=== PATIENT | male | born 1990 | race Caucasian/White ===

== ENCOUNTER 2018-11-27 04:39 | Inpatient (IN) | payer OTHER ==
[~2018-11-27] VITALS: Ht 167.6 cm; Wt 62.7 kg
[2018-11-27] MEDS ORDERED: SOD CHLORIDE 0.9% 1,000 ML IV STA (05:52)
--- NOTE | 2018-11-27 06:16 | ERD ---
ER Documentation Chief Complaint Chief Complaint aloc, friend states been drinking etoh HPI This is a 28-year-old male with a past medical history significant for polysubstance abuse including significant daily alcohol abuse and recent heroin abuse who is now presenting for altered mentation and concern of intoxication. The patient's friend brought him to the emergency department because he was more altered than usual. The patient feels fatigued, lightheaded and generally weak. He is sleepy but arousable. He is oriented x3. He does endorse a mild headache with nausea and general abdominal discomfort. He has not vomited. He denies any constipation or diarrhea. He has not had any black or bloody or tarry stools. The patient does not endorse any suicidal or homicidal ideations. He does not endorse any auditory or visual hallucinations. The patient denies fever or chills. The patient has had no headache or vision changes. The patient does not endorse neck or back pain. The patient denies dizziness. The patient has had no chest pain or trouble breathing. The patient has had no focal deficits. The patient has had no weakness or numbness or tingling to the face or extremities. ROS All systems reviewed and are negative except as per history of present illness. Allergies Allergies: Coded Allergies: No Known Drug Allergies (Verified Allergy, Unknown, 11/27/18) PMhx/Soc Medical and Surgical Hx: pt denies Surgical Hx History of Surgery: No Anesthesia Reaction: No Hx Neurological Disorder: No Hx Respiratory Disorders: No Hx Cardiac Disorders: No Hx Psychiatric Problems: No Hx Miscellaneous Medical Probl: Yes (alcoholism, drug abuse) Hx Alcohol Use: Yes Hx Substance Use: Yes Hx Tobacco Use: Yes Smoking Status: Current every day smoker FmHx Family History: No diabetes Physical Exam Vitals Vital Signs Date Temp Pulse Resp B/P (MAP) Pulse Ox O2 O2 Flow FiO2 Time Delivery Rate 11/27/18 93 18 124/86 97 Nasal 05:09 (99) Cannula 11/27/18 97.7 106 18 123/68 94 04:47 (86) Physical Exam Const: No apparent distress, well-developed, well-nourished Head: Normocephalic, Atraumatic Eyes: Normal Conjunctiva. Extraocular movements intact. Pupils equal, round and reactive to light ENT: Normal External Ears, Nose and Mouth. Neck: Full range of motion. No meningismus. Resp: Clear to auscultation bilaterally, No wheezes, rales or rhonchi Cardio: Regular rate and rhythm. No murmurs, rubs or gallops Abd: Soft, non tender, non distended. Normal bowel sounds Skin: No petechiae or rashes Back: No midline tenderness. No CVA tenderness Ext: No cyanosis, or edema Neur: Sleepy but arousable, oriented 3. Cranial nerves intact. No facial droop. Normal strength, sensation and coordination. Result Diagram: 11/27/1852211/27/18522 Results 24 hrs Laboratory Tests Test 11/27/18 05:23 11/27/18 05:24 White Blood Count 30.1 10^3/ul Red Blood Count 5.22 10^6/ul Hemoglobin 16.1 g/dl Hematocrit 47.7 % Mean Corpuscular Volume 91.4 fl Mean Corpuscular Hemoglobin 30.8 pg Mean Corpuscular Hemoglobin Concent 33.8 g/dl Red Cell Distribution Width 12.8 % Platelet Count 314 10^3/UL Mean Platelet Volume 9.8 fl Immature Granulocytes % 1.400 % Neutrophils % % Lymphocytes % % Monocytes % % Eosinophils % % Basophils % % Nucleated Red Blood Cells % 0.0 /100WBC Immature Granulocytes # 0.410 10^3/ul Neutrophils # 10^3/ul Lymphocytes # 10^3/ul Monocytes # 10^3/ul Eosinophils # 10^3/ul Basophils # 10^3/ul Nucleated Red Blood Cells # 10^3/ul Sodium Level 148 mmol/L Potassium Level 4.6 mmol/L Chloride Level 107 mmol/L Carbon Dioxide Level 23 mmol/L Anion Gap 18 Blood Urea Nitrogen 23 mg/dl Creatinine 1.74 mg/dl Est Glomerular Filtrat Rate mL/min 47 mL/min Glucose Level 67 mg/dl Calcium Level 8.5 mg/dl Total Bilirubin 0.2 mg/dl Direct Bilirubin 0.00 mg/dl Indirect Bilirubin 0.2 mg/dl Aspartate Amino Transf (AST/SGOT) 1331 IU/L Alanine Aminotransferase (ALT/SGPT) 1257 IU/L Alkaline Phosphatase 103 IU/L Total Protein 8.0 g/dl Albumin 5.0 g/dl Globulin 3.00 g/dl Albumin/Globulin Ratio 1.66 Salicylates Level < 1.0 mg/dl Acetaminophen Level < 10.0 ug/ml Ethyl Alcohol Level 111.0 mg/dl Urine Color YELLOW Urine Clarity CLOUDY Urine pH 5.0 Urine Specific [place] 1.015 Urine Ketones 1+ mg/dL Urine Nitrite NEGATIVE mg/dL Urine Bilirubin NEGATIVE mg/dL Urine Urobilinogen NEGATIVE mg/dL Urine Leukocyte Esterase NEGATIVE Riya/ul Urine Microscopic RBC 2 /HPF Urine Microscopic WBC 6 /HPF Urine Bacteria FEW /HPF Urine Mucus FEW /HPF Urine Hemoglobin 3+ mg/dL Urine Glucose NEGATIVE mg/dL Urine Total Protein 2+ mg/dl Urine Opiates Screen POSITIVE Urine Barbiturates NEGATIVE Urine Amphetamines Screen POSITIVE Urine Benzodiazepines Screen NEGATIVE Urine Cocaine Screen NEGATIVE Urine Cannabinoids NEGATIVE Current Medications Medications Dose Sig/Paco Start Time Status Last (Trade) Ordered Route PRN Stop Time Admin Dose Reason Admin Sodium 1,000 ml @ Q1H STAT 11/27/18 DC 11/27/18 Chloride 1,000 mls/hr IV 05:52 11/27/18 06:14 06:51 Procedures/MDM MDM The patient's presentation warrants further investigation. Previous medical records, if available, were reviewed. LABS The patient's laboratory testing was obtained and reviewed. No emergent treatment was required unless described below. CBC: Significant leukocytosis, potentially still reactive. No E/o anemia or thrombocytopenia Chemistry: No E/o severe acidosis or alkalosis or diabetic ketoacidosis. Elevated creatinine, concerning for acute kidney injury. significant transaminitis, concerning for viral hepatitis. Tox: E/o alcohol abuse, methamphetamine abuse, opiate abuse. No E/o salicylate or acetaminophen use. Urine: Unlikely a urinary tract infection. 3+ hemoglobin with very few RBCs, concerning for the possibility of rhabdo CK: Pending TREATMENT/DISPOSITION The patient presents for intoxication. The patient does not have symptoms concerning for acute psychosis. Patient is not suicidal or homicidal. I do not believe that he is in immediate danger to himself or others. I do not feel the patient requires further psychiatric workup. The patient does have laboratory abnormalities that require further evaluation. The patient does have a significant leukocytosis, which I suspect is potentially reactive as I do not see evidence of a systemic infection. I do not feel the patient requires antibiotics at this time. The patient has evidence of acute kidney injury. I am concerned about the possibility of rhabdomyolysis. The patient was given IV fluids in the emergency department. The patient's CK is currently pending. The patient also has evidence of significant transaminitis, concerning for viral hepatitis. An acute hepatitis panel was ordered and sent off. ADMISSION At this time, I feel that the patient requires admission for further evaluation and management. The patient will be admitted to panel in accordance with the patient's insurance. The patient was accepted by Dr. Samuels at 7:30 AM on November 27, 2018. Departure Diagnosis: Primary Impression: Polysubstance abuse Additional Impressions: Transient alteration of awareness Alcohol abuse Opiate abuse, continuous Methamphetamine abuse Leukocytosis Leukocytosis type: unspecified Qualified Codes: D72.829 - Elevated white blood cell count, unspecified Acute kidney injury Viral hepatitis Viral hepatitis type: unspecified Viral hepatitis chronicity: unspecified Hepatic coma status: without hepatic coma Qualified Codes: B19.9 - Unspecified viral hepatitis without hepatic coma Hematuria Hematuria type: unspecified type Qualified Codes: R31.9 - Hematuria, unspecified Condition: Serious ZURDO SAVAGE MD Nov 27, 2018 06:16
[2018-11-27] MEDS ORDERED: ACETAMINOPHEN 325 MG TAB PO PRN (07:30)
[2018-11-27] MEDS ORDERED: ONDANSETRON 4 MG INJ IV PRN ×2 (07:30→09:30)
[2018-11-27 09:30] VITALS: BP 135/78; PULSE 94; RESP 17
[2018-11-27] MEDS ORDERED: NACL 0.9% 3 ML SYG IV SCH (09:30)
--- NOTE | 2018-11-27 09:34 | HP ---
Date/Time of Note Date/Time of Note DATE: 11/27/18 TIME: 09:34 Assessment/Plan VTE Prophylaxis Pharmacological prophylaxis: NA/contraindicated Pharm contraindication: liver dx, renal impairment Lines/Catheters IV C[facility] Type [facility]from [facility]): [facility] Assessment/Plan Hospital Course 28-year-old male with past medical history of alcoholism who was brought in by his parents because of altered level of consciousness, who was found to have underlying acute kidney injury and rhabdomyolysis with evidence of alcohol intoxication, who will be admitted to inpatient setting for further treatment and evaluation. 1. Alcohol intoxication. -Continue the patient on a tapering dose of Librium. -Continue the patient on PRN IV benzodiazepines for any DTs. -Start daily vitamin supplements. -Obtain geriatric social worker consult. 2. Substance abuse. -Urine drug screen positive for opioids and amphetamines. -Cessation advised. -Social work consult. 3. Acute kidney injury. -Most probably intra-renal in origin from underlying rhabdomyolysis. -Continue IV hydration. -Avoid nephrotoxic medications. 4. Rhabdomyolysis. -Continue IV hydration. 5. Transaminitis with hyperbilirubinemia. -Avoid hepatotoxic medications -Most probably secondary to underlying alcoholism. -Trend LFTs. -Hepatitis panel negative. 6. Leukocytosis. -Etiology unclear. -Patient remains afebrile. -Probably reactive. -Monitor. Plan: The patient will be admitted to inpatient medical surgical floor. The patient will be started on a regular diet. The patient will be started on DVT prophylaxis. The patient will remain a full code. Activities will be as tolerated. The rest of the patient's management will be based on the clinical course and the results of diagnostic studies. Based on the patient's clinical presentation, he most probably requires a 1 midnight's stay for further management and evaluation of his clinical presentation. The patient was seen in collaboration with Dr. Samuels. Result Diagram: 11/27/18 0511/27/18522 Results 24hrs Laboratory Tests Test 11/27/18 05:23 11/27/18 05:24 11/27/18 08:45 White Blood Count 30.1 H Red Blood Count 5.22 Hemoglobin 16.1 Hematocrit 47.7 Mean Corpuscular Volume 91.4 Mean Corpuscular Hemoglobin 30.8 Mean Corpuscular Hemoglobin Concent 33.8 Red Cell Distribution Width 12.8 Platelet Count 314 Mean Platelet Volume 9.8 Immature Granulocytes % 1.400 H Neutrophils % Lymphocytes % Monocytes % Eosinophils % Basophils % Nucleated Red Blood Cells % 0.0 Immature Granulocytes # 0.410 H Neutrophils # Lymphocytes # Monocytes # Eosinophils # Basophils # Nucleated Red Blood Cells # Sodium Level 148 H Potassium Level 4.6 Chloride Level 107 Carbon Dioxide Level 23 Anion Gap 18 H Blood Urea Nitrogen 23 H Creatinine 1.74 H Est Glomerular Filtrat Rate mL/min 47 L Glucose Level 67 L Calcium Level 8.5 Total Bilirubin 0.2 Direct Bilirubin 0.00 Indirect Bilirubin 0.2 Aspartate Amino Transf (AST/SGOT) 1331 H Alanine Aminotransferase (ALT/SGPT) 1257 H Alkaline Phosphatase 103 Creatine Kinase 2993 H Total Protein 8.0 Albumin 5.0 H Globulin 3.00 Albumin/Globulin Ratio 1.66 Salicylates Level < 1.0 L Acetaminophen Level < 10.0 L Ethyl Alcohol Level 111.0 H Urine Color YELLOW Urine Clarity CLOUDY A Urine pH 5.0 Urine Specific [place] 1.015 Urine Ketones 1+ H Urine Nitrite NEGATIVE Urine Bilirubin NEGATIVE Urine Urobilinogen NEGATIVE Urine Leukocyte Esterase NEGATIVE Urine Microscopic RBC 2 Urine Microscopic WBC 6 H Urine Bacteria FEW A Urine Mucus FEW A Urine Hemoglobin 3+ H Urine Glucose NEGATIVE Urine Total Protein 2+ H Urine Opiates Screen POSITIVE Urine Barbiturates NEGATIVE Urine Amphetamines Screen POSITIVE Urine Benzodiazepines Screen NEGATIVE Urine Cocaine Screen NEGATIVE Urine Cannabinoids NEGATIVE Hepatitis B Surface Antigen Pending Hepatitis B Core Total Antibody Pending Hepatitis C Antibody Pending HPI/ROS Admit Date/Time Admit Date/Time Nov 27, 2018 at 07:41 Hx of Present Illness This is a 28 year old male who denied any past medical history, other than history of alcohol abuse. The patient was recently at a alcohol rehab program and was discharged from there. The patient went on a drinking spree with his friends. The patient was brought to emergency room by his friends because of altered level of consciousness. ER physician documented recent heroin abuse. However, the patient denied using any recreational drugs. Nevertheless, the patient's urine drug screen was positive for opioids and amphetamines. The patient was complaining of anxiety. The patient denied any pain. He denied any nausea, vomiting, constipation, diarrhea, or black stools. The patient does not remember how he got to the emergency room. In the emergency room, the patient was somnolent although arousable. The patient reported a mild headache with nausea and some general abdominal discomfort in the emergency room. The patient's workup showed that he has underlying transaminitis without hyperbilirubinemia. He was also noticed to be in acute renal failure with a BUN and creatinine of 23 and 1.74 respectively. The patient was treated with IV fluids in the emergency room. The patient's alcohol level was 111. ROS Constitutional: no complaints Eyes: no complaints ENT: no complaints Respiratory: no complaints Cardiovascular: no complaints Gastrointestinal: no complaints Genitourinary: no complaints Musculoskeletal: no complaints Skin: no complaints Neurologic: no complaints Endocrine: no complaints Lymphatic: no complaints Psychological: anxiety Immunologic: no complaints PMH/Family/Social Past Medical History 1. Alcohol abuse. 2. Nicotine use. Medical History: no pertinent history Medications Current Medications Ondansetron HCl (Zofran Inj) 4 mg BRIDGE ORDER PRN IV NAUSEA/VOMITING; Start 11/27/18 at 07:30; Stop 11/28/18 at 07:29 Acetaminophen (Tylenol Tab) 650 mg ER BRIDGE PRN PO .MILD PAIN 1-3 OR TEMP; Start 11/27/18 at 07:30; Stop 11/28/18 at 07:29 Sodium Chloride 1,000 ml @ 100 mls/hr Q10H IV ; Start 11/27/18 at 09:29; Status UNV IV Flush (NS 3 ml) 3 ml PER PROTOCOL IV ; Start 11/27/18 at 09:30; Status UNV Ondansetron HCl (Zofran Inj) 4 mg Q6H PRN IV NAUSEA/VOMITING; Start 11/27/18 at 09:30; Status UNV Lorazepam (Ativan) 1 mg Q2H PRN IV Anxiety; Start 11/27/18 at 09:30; Status UNV Chlordiazepoxide (Librium) 25 mg TID PO ; Start 11/27/18 at 13:00; Status UNV Thiamine HCl (Vitamin B1) 100 mg DAILY PO ; Start 11/27/18 at 09:30; Status UNV Multivitamins Therapeutic (Theragran) 1 tab DAILY PO ; Start 11/27/18 at 09:30; Status UNV Coded Allergies: No Known Drug Allergies (Verified Allergy, Unknown, 11/27/18) Past Surgical History Past Surgical Hx: no surgical history Social History 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 Alcohol Use: heavy Smoking Status: Current every day smoker Drug Use: other (Patient denies, but urine positive for amphteamines and opiods.) Exam/Review of Systems Vital Signs Vitals Vital Signs Date Temp Pulse Resp B/P (MAP) Pulse Ox O2 O2 Flow FiO2 Time Delivery Rate 11/27/18 98.3 90 20 134/92 98 Room Air 07:30 (106) Exam Exam General: Adequately build 28 year-old male lying in bed in no apparent distress. HEENT: Normocephalic, atraumatic. Eyes: Anicteric sclerae, conjunctivae clear. ENT: Nasal septum midline, oral mucosa moist. Neck supple, no JVD noticed. Respiratory: Bilaterally clear breath sounds. No use of accessory muscles of respiration. No adventitious breath sounds. Cardiovascular: S1, S2 heard. Regular rate and rhythm. Abdomen: Soft, nontender, and nondistended. Bowel sounds positive in all 4 quadrants. Genitourinary: Deferred. Extremities: No cyanosis, no clubbing, no edema. Peripheral pulses palpable. Neurologic: The patient is awake and alert. Oriented to place and person. Unsure of the day or month. Knows the current year and the president. Skin: Normal skin turgor. No skin rashes. PEIRRE MULLIGAN NP Nov 27, 2018 09:34
[2018-11-27] MEDS: THIAMINE 100 MG TAB PO SCH (10:37)
[2018-11-27] MEDS: SOD CHLORIDE 0.9% 1,000 ML IV SCH ×2 (10:37→22:10)
[2018-11-27] MEDS: MULTIVITAMINS THERAPEUTIC TAB PO SCH (10:38)
[2018-11-27] MEDS: LORAZEPAM 2 MG INJ IV PRN ×4 (10:39→20:53)
[2018-11-27 11:00] VITALS: Ht 167.6 cm; Wt 62.7 kg
[2018-11-27 11:06] VITALS: BP 135/78; PULSE 84; RESP 17
[2018-11-27] MEDS: CHLORDIAZEPOXIDE 25 MG CAP PO SCH ×2 (13:35→20:53)
[2018-11-27 14:00] VITALS: BP 137/76; PULSE 100; RESP 18
[2018-11-27 20:30] VITALS: BP 122/68; PULSE 90; RESP 18
[2018-11-28] MEDS: LORAZEPAM 2 MG INJ IV PRN ×3 (01:22→17:38)
[2018-11-28 02:25] VITALS: BP 110/67; PULSE 90; RESP 18
[2018-11-28] MEDS: SOD CHLORIDE 0.9% 1,000 ML IV SCH ×2 (07:27→15:29)
[2018-11-28] MEDS: CHLORDIAZEPOXIDE 25 MG CAP PO SCH ×3 (08:11→20:40)
[2018-11-28 08:52] VITALS: BP 117/64; PULSE 97; RESP 18
[2018-11-28] MEDS: THIAMINE 100 MG TAB PO SCH (09:30)
[2018-11-28] MEDS: MULTIVITAMINS THERAPEUTIC TAB PO SCH (09:30)
[2018-11-28] MEDS ORDERED: POTASSIUM PHOSPHATE 40 MEQ in SOD CHLORIDE 0.9% 250 ML IVPB ONE (12:30)
--- NOTE | 2018-11-28 13:09 | RADRPT ---
Vent Rate: 86 bpm RR Interval: 0 msec ME Interval: 124 msec QRS Duration: 82 msec QT Interval: 350 msec QTC Interval: 418 msec P-R-T [place]: 82 - 78 - 64 degrees Normal sinus rhythm Normal ECG Electronically Signed By: Franki Klein
[2018-11-28 14:17] VITALS: BP 114/64; PULSE 77; RESP 19
--- NOTE | 2018-11-28 14:58 | PN ---
Date/Time of Note Date/Time of Note DATE: 11/28/18 TIME: 14:55 Assessment/Plan VTE Prophylaxis Risk score (from Ns)>0 risk: 1 SCD applied (from Nsg): Yes Pharmacological prophylaxis: other Lines/Catheters IV Catheter Type (from Nrs): Peripheral IV Urinary Cath still in place: No Assessment/Plan Hospital Course S: Patient had no acute events overnight. O: VS - see below PE: Exam General: lying in bed in no apparent distress. HEENT: Normocephalic, atraumatic. Eyes: Anicteric sclerae, conjunctivae clear. ENT: Nasal septum midline, oral mucosa moist. Neck supple, no JVD noticed. Respiratory: Bilaterally clear breath sounds. No use of accessory muscles of respiration. No adventitious breath sounds. Cardiovascular: S1, S2 heard. Regular rate and rhythm. Abdomen: Soft, nontender, and nondistended. Bowel sounds positive in all 4 quadrants. Genitourinary: Deferred. Extremities: No cyanosis, no clubbing, no edema. Peripheral pulses palpable. Neurologic: The patient is awake and alert. Oriented to place and person. Unsure of the day or month. Knows the current year and the president. Skin: Normal skin turgor. No skin rashes. A/P: 28-year-old male with past medical history of alcoholism who was brought in by his parents because of altered level of consciousness, who was found to have underlying acute kidney injury and rhabdomyolysis with evidence of alcohol intoxication, who will be admitted to inpatient setting for further treatment and evaluation. 1. Alcohol intoxication-patient found with elevated blood alcohol level. -Continue the patient on a tapering dose of Librium. -Continue the patient on PRN IV benzodiazepines for any DTs. -Continue daily vitamin supplements. -Follow-up recommendations from forensic social worker consult. 2. Substance abuse.-Urine drug screen positive for opioids and amphetamines. -Cessation advised. -Monitor for signs of withdrawal, social work consult. 3. Acute kidney injury.-Most probably intra-renal in origin from underlying rhabdomyolysis. -Continue IV hydration. -Avoid nephrotoxic medications. 4. Rhabdomyolysis-patient found with elevated CK levels 2400 range -Continue IV hydration. -For elevated troponin, likely secondary to rhabdo, but we will go ahead and consult cardiology team for further evaluation 5. Transaminitis with hyperbilirubinemia-Most probably secondary to underlying alcoholism-Hepatitis panel negative. -Avoid hepatotoxic medications -Trend LFTs. 6. Leukocytosis.-Etiology unclear.-Patient remains afebrile-Probably reactive. -Monitor. Result Diagram: 11/28/18 0534 11/28/18 0534 Results 24hrs Laboratory Tests Test 11/28/18 05:34 11/28/18 08:52 11/28/18 13:00 White Blood Count 15.5 #H Red Blood Count 4.05 #L Hemoglobin 12.4 #L Hematocrit 36.0 #L Mean Corpuscular Volume 88.9 Mean Corpuscular Hemoglobin 30.6 Mean Corpuscular Hemoglobin Concent 34.4 Red Cell Distribution Width 12.3 Platelet Count 218 # Mean Platelet Volume 10.5 H Immature Granulocytes % 0.400 Neutrophils % 78.1 H Lymphocytes % 15.1 Monocytes % 5.7 Eosinophils % 0.3 Basophils % 0.4 Nucleated Red Blood Cells % 0.0 Immature Granulocytes # 0.060 H Neutrophils # 12.1 H Lymphocytes # 2.3 Monocytes # 0.9 Eosinophils # 0.0 Basophils # 0.1 Nucleated Red Blood Cells # 0.0 Prothrombin Time 14.7 Prothrombin Time Ratio 1.1 INR International Normalized Ratio 1.14 Activated Partial Thromboplast Time 27.1 Sodium Level 138 Potassium Level 3.6 Chloride Level 103 Carbon Dioxide Level 30 Anion Gap 5 # Blood Urea Nitrogen 16 Creatinine 0.70 # Est Glomerular Filtrat Rate mL/min > 60 Glucose Level 98 Calcium Level 8.4 Phosphorus Level 1.7 L Magnesium Level 2.0 Total Bilirubin 0.7 Direct Bilirubin 0.00 Indirect Bilirubin 0.7 Aspartate Amino Transf (AST/SGOT) 469 #H Alanine Aminotransferase (ALT/SGPT) 627 H Alkaline Phosphatase 61 Creatine Kinase 2400 H 2410 H Creatine Kinase Index 0.3 0.2 Creatinine Kinase MB (Mass) 6.46 H 4.73 H Troponin I 0.214 *H 0.168 *H 0.120 Total Protein 5.9 #L Albumin 3.4 # Globulin 2.50 Albumin/Globulin Ratio 1.36 Exam/Review of Systems Exam Vitals Vital Signs Date Temp Pulse Resp B/P (MAP) Pulse Ox O2 O2 Flow FiO2 Time Delivery Rate 11/28/18 98.7 77 19 114/64 97 Room Air 14:17 (81) Intake and Output 11/27/18 11/27/18 11/28/18 1515:00 23:00 07:00 IntakeIntake Total 640 ml 1000 ml 300 ml OutputOutput Total 350 ml BalanceBalance 290 ml 1000 ml 300 ml Results Results 24hrs Laboratory Tests Test 11/28/18 05:34 11/28/18 08:52 11/28/18 13:00 White Blood Count 15.5 #H Red Blood Count 4.05 #L Hemoglobin 12.4 #L Hematocrit 36.0 #L Mean Corpuscular Volume 88.9 Mean Corpuscular Hemoglobin 30.6 Mean Corpuscular Hemoglobin Concent 34.4 Red Cell Distribution Width 12.3 Platelet Count 218 # Mean Platelet Volume 10.5 H Immature Granulocytes % 0.400 Neutrophils % 78.1 H Lymphocytes % 15.1 Monocytes % 5.7 Eosinophils % 0.3 Basophils % 0.4 Nucleated Red Blood Cells % 0.0 Immature Granulocytes # 0.060 H Neutrophils # 12.1 H Lymphocytes # 2.3 Monocytes # 0.9 Eosinophils # 0.0 Basophils # 0.1 Nucleated Red Blood Cells # 0.0 Prothrombin Time 14.7 Prothrombin Time Ratio 1.1 INR International Normalized Ratio 1.14 Activated Partial Thromboplast Time 27.1 Sodium Level 138 Potassium Level 3.6 Chloride Level 103 Carbon Dioxide Level 30 Anion Gap 5 # Blood Urea Nitrogen 16 Creatinine 0.70 # Est Glomerular Filtrat Rate mL/min > 60 Glucose Level 98 Calcium Level 8.4 Phosphorus Level 1.7 L Magnesium Level 2.0 Total Bilirubin 0.7 Direct Bilirubin 0.00 Indirect Bilirubin 0.7 Aspartate Amino Transf (AST/SGOT) 469 #H Alanine Aminotransferase (ALT/SGPT) 627 H Alkaline Phosphatase 61 Creatine Kinase 2400 H 2410 H Creatine Kinase Index 0.3 0.2 Creatinine Kinase MB (Mass) 6.46 H 4.73 H Troponin I 0.214 *H 0.168 *H 0.120 Total Protein 5.9 #L Albumin 3.4 # Globulin 2.50 Albumin/Globulin Ratio 1.36 Medications Medication Current Medications Sodium Chloride 1,000 ml @ 100 mls/hr Q10H IV Last administered on 11/28/18at 07:27; Admin Dose 100 MLS/HR; Start 11/27/18 at 09:29 IV Flush (NS 3 ml) 3 ml PER PROTOCOL IV ; Start 11/27/18 at 09:30 Ondansetron HCl (Zofran Inj) 4 mg Q6H PRN IV NAUSEA/VOMITING; Start 11/27/18 at 09:30 Lorazepam (Ativan) 1 mg Q2H PRN IV Anxiety Last administered on 11/28/18 09:30; Admin Dose 1 MG; Start 11/27/18 at 09:30 Chlordiazepoxide (Librium) 25 mg TID PO Last administered on 11/28/18at 13:00; Admin Dose 25 MG; Start 11/27/18 at 13:00 Thiamine HCl (Vitamin B1) 100 mg DAILY PO Last administered on 11/28/18 09:30; Admin Dose 100 MG; Start 11/27/18 at 09:30 Multivitamins Therapeutic (Theragran) 1 tab DAILY PO Last administered on 11/28/18 09:30; Admin Dose 1 TAB; Start 11/27/18 at 09:30 Potassium Phosphate 40 meq/ Sodium Chloride 259.0909 ml @ 64.773 m... ONCE ONCE IVPB Last administered on 11/28/18at 13:53; Admin Dose 64.773 MLS/HR; Start 11/28/18 at 12:30; Stop 11/28/18 at 16:29 Multivitamins 10 ml/Thiamine HCl 100 mg/Folic Acid 1 mg/Sodium Chloride 1,011.2 ml @ 125 mls/ hr DAILY@09 IVPB ; Start 11/28/18 at 12:30 DEEPTI WILKINSON Nov 28, 2018 14:58
[2018-11-28] MEDS: MULTIVITAMINS 10 ML, THIAMINE 100 MG, FOLIC ACID 1 MG in SOD CHLORIDE 0.9% 1,000 ML IVPB SCH (18:19)
--- NOTE | 2018-11-28 18:58 | CONS ---
Assessment/Plan Assessment/Plan Hospital Course (Demo Recall) 1. ABNORMAL TROP: c/ w false + trop due to rhabho 2. rhabdo 3. NENO 4. hx drug use 5. hx etoh use REC: We will check echocardiogram Patient has been advised against using drugs smoking and alcohol IV fluid and renal function evaluation and treatment as per internal medicine THANK you for this referral ELIZABETH JASON MD [facility] Consultation Date/Type/Reason Admit Date/Time Nov 27, 2018 at 07:41 Date of Consultation: Nov 28, 2018 Type of Consult Cardiology Reason for Consultation + TROP Requesting Provider: DEEPTI WILKINSON Date/Time of Note DATE: 11/28/18 TIME: 18:51 Hx of Present Illness Interventional cardiology consultation note Chief complaint: altered LOC Reason for consult: Abnormal trop. History of present illness: Thank you for this referral. This is a 28 year old male who denied any past medical history, other than history of alcohol abuse. The patient was recently at a alcohol rehab program and was discharged from there. The patient went on a drinking spree with his friends. The patient was brought to emergency room by his friends because of altered level of consciousness. ER physician documented recent heroin abuse. However, the patient denied using any recreational drugs. Nevertheless, the patient's urine drug screen was positive for opioids and amphetamines. The patient was complaining of anxiety. The patient denied any chest pain but his trop was mildly elevated. his CK was also markedly elevated. . The patient does not remember how he got to the emergency room. Patient says when he is in rehab is able to exercise fine no chest pain or pressure Allergies: NIKDA Medications were reviewed as per medical reconciliation sheet Family history: no CAD Social history: + ETOH. + Drugs Past medical history: none Review of system: Patient denies all others except for above-mentioned Past Medical History Medications Current Medications Sodium Chloride 1,000 ml @ 150 mls/hr Q6H40M IV Last administered on 11/28/18at 07:27; Admin Dose 100 MLS/HR; Start 11/27/18 at 09:29 IV Flush (NS 3 ml) 3 ml PER PROTOCOL IV ; Start 11/27/18 at 09:30 Ondansetron HCl (Zofran Inj) 4 mg Q6H PRN IV NAUSEA/VOMITING; Start 11/27/18 at 09:30 Lorazepam (Ativan) 1 mg Q2H PRN IV Anxiety Last administered on 11/28/18at 17:38; Admin Dose 1 MG; Start 11/27/18 at 09:30 Chlordiazepoxide (Librium) 25 mg TID PO Last administered on 11/28/18at 13:00; Admin Dose 25 MG; Start 11/27/18 at 13:00 Thiamine HCl (Vitamin B1) 100 mg DAILY PO Last administered on 11/28/18at 09:30; Admin Dose 100 MG; Start 11/27/18 at 09:30 Multivitamins Therapeutic (Theragran) 1 tab DAILY PO Last administered on 11/28/18at 09:30; Admin Dose 1 TAB; Start 11/27/18 at 09:30 Multivitamins 10 ml/Thiamine HCl 100 mg/Folic Acid 1 mg/Sodium Chloride 1,011.2 ml @ 125 mls/ hr DAILY@09 IVPB Last administered on 11/28/18 18:19; Admin Dose 125 MLS/HR; Start 11/28/18 at 12:30 Allergies: Coded Allergies: No Known Drug Allergies (Verified Allergy, Unknown, 11/27/18) Past Surgical History Past Surgical Hx: no surgical history Social History Alcohol Use: heavy Smoking Status: Current every day smoker Drug Use: other (Patient denies, but urine positive for amphteamines and opiods.) Exam/Review of Systems Vital Signs Vitals Vital Signs Date Temp Pulse Resp B/P (MAP) Pulse Ox O2 O2 Flow FiO2 Time Delivery Rate 11/28/18 98.7 77 19 114/64 97 Room Air 14:17 (81) Intake and Output 11/27/18 11/27/18 11/28/18 1515:00 23:00 07:00 IntakeIntake Total 640 ml 1000 ml 300 ml OutputOutput Total 350 ml BalanceBalance 290 ml 1000 ml 300 ml Exam Exam General: no acute distress HEENT: NC/AT. pupils are equal. round. NECK: NO JVD. no stridor. CV: RRR. systolic murmur; no gallop or rubs. PULM: no wheezing or rhonchi. GI: SOFT, NT, ND, no rebound or guarding Extremity: trace B/L LE edema. no clubbing. neuro: awake and alert, OX3. Psych: calm and pleasant rectal: deferred EKG showed normal sinus rhythm normal ECG Labs Result Diagram: 11/28/18 0534 11/28/18 0534 Results 24hrs Laboratory Tests Test 11/28/18 05:34 11/28/18 08:52 11/28/18 13:00 11/28/18 16:51 White Blood Count 15.5 #H Red Blood Count 4.05 #L Hemoglobin 12.4 #L Hematocrit 36.0 #L Mean Corpuscular Volume 88.9 Mean Corpuscular 30.6 Hemoglobin Mean Corpuscular 34.4 Hemoglobin Concent Red Cell Distribution 12.3 Width Platelet Count 218 # Mean Platelet Volume 10.5 H Immature Granulocytes % 0.400 Neutrophils % 78.1 H Lymphocytes % 15.1 Monocytes % 5.7 Eosinophils % 0.3 Basophils % 0.4 Nucleated Red Blood 0.0 Cells % Immature Granulocytes # 0.060 H Neutrophils # 12.1 H Lymphocytes # 2.3 Monocytes # 0.9 Eosinophils # 0.0 Basophils # 0.1 Nucleated Red Blood 0.0 Cells # Prothrombin Time 14.7 Prothrombin Time Ratio 1.1 INR International 1.14 Normalized Ratio Activated 27.1 Partial Thromboplast Time Sodium Level 138 Potassium Level 3.6 Chloride Level 103 Carbon Dioxide Level 30 Anion Gap 5 # Blood Urea Nitrogen 16 Creatinine 0.70 # Est Glomerular Filtrat > 60 Rate mL/min Glucose Level 98 Calcium Level 8.4 Phosphorus Level 1.7 L Magnesium Level 2.0 Total Bilirubin 0.7 Direct Bilirubin 0.00 Indirect Bilirubin 0.7 Aspartate Amino 469 #H Transf (AST/SGOT) Alanine 627 H Aminotransferase (ALT/SG PT) Alkaline Phosphatase 61 Creatine Kinase 2400 H 2410 H Creatine Kinase Index 0.3 0.2 Creatinine Kinase MB 6.46 H 4.73 H (Mass) Troponin I 0.214 *H 0.168 *H 0.120 0.118 Total Protein 5.9 #L Albumin 3.4 # Globulin 2.50 Albumin/Globulin Ratio 1.36 Medications Medications Current Medications Sodium Chloride 1,000 ml @ 150 mls/hr Q6H40M IV Last administered on 11/28/18at 07:27; Admin Dose 100 MLS/HR; Start 11/27/18 at 09:29 IV Flush (NS 3 ml) 3 ml PER PROTOCOL IV ; Start 11/27/18 at 09:30 Ondansetron HCl (Zofran Inj) 4 mg Q6H PRN IV NAUSEA/VOMITING; Start 11/27/18 at 09:30 Lorazepam (Ativan) 1 mg Q2H PRN IV Anxiety Last administered on 11/28/18 17:38; Admin Dose 1 MG; Start 11/27/18 at 09:30 Chlordiazepoxide (Librium) 25 mg TID PO Last administered on 11/28/18 13:00; Admin Dose 25 MG; Start 11/27/18 at 13:00 Thiamine HCl (Vitamin B1) 100 mg DAILY PO Last administered on 11/28/18 09:30; Admin Dose 100 MG; Start 11/27/18 at 09:30 Multivitamins Therapeutic (Theragran) 1 tab DAILY PO Last administered on 11/28/18 09:30; Admin Dose 1 TAB; Start 11/27/18 at 09:30 Multivitamins 10 ml/Thiamine HCl 100 mg/Folic Acid 1 mg/Sodium Chloride 1,011.2 ml @ 125 mls/ hr DAILY@09 IVPB Last administered on 11/28/18 18:19; Admin Dose 125 MLS/HR; Start 11/28/18 at 12:30 ELIZABETH JASON MD Nov 28, 2018 18:58
[2018-11-28 20:10] VITALS: BP 117/53; PULSE 92; RESP 20
[2018-11-29] MEDS: SOD CHLORIDE 0.9% 1,000 ML IV SCH (01:41)
[2018-11-29 02:36] VITALS: BP 143/77; PULSE 75; RESP 20
[2018-11-29 08:00] VITALS: BP 123/64; RESP 20
[2018-11-29] MEDS: MULTIVITAMINS 10 ML, THIAMINE 100 MG, FOLIC ACID 1 MG in SOD CHLORIDE 0.9% 1,000 ML IVPB SCH (08:17)
[2018-11-29] MEDS: THIAMINE 100 MG TAB PO SCH (08:17)
[2018-11-29] MEDS: MULTIVITAMINS THERAPEUTIC TAB PO SCH (08:17)
[2018-11-29] MEDS: LORAZEPAM 2 MG INJ IV PRN ×2 (08:17→10:48)
[2018-11-29] MEDS: CHLORDIAZEPOXIDE 25 MG CAP PO SCH ×2 (08:17→12:40)
--- NOTE | 2018-11-29 12:15 | RADRPT ---
Echocardiogram Report Patient Name: RODO GARVEYPatient ID: [id number] : 1990 (28y 9m)Study Date: 11/29/2018 10:21:00 AM Gender: MAccession #: [id number] Tech: Dilshad Wilks [facility] Location: 2[address] Ref.Physician: ELIZABETH JASON Height(Cm): BSA: Weight(Kg): Quality: AdequateAccount #: Procedures: Echocardiographic Report: Transthoracic echocardiogram with complete 2D, M-Mode, and doppler examination. Indications: + Troponin. Measurements: 2D/M Mode Doppler Measurement Value Normal Range Measurement Value Normal Range LVIDd MM 4.6 [ 4.2 - 5.8 ] cm AV Peak Kody 1.4 [ 100.0 - 170.0 ] cm/sec LVIDd 2D 4.6 [ 4.2 - 5.8 ] cm AV Peak PG 8.0 [ 2.0 - 9.0 ] mmHg LVIDs 2D 2.9 [ 2.5 - 4.0 ] cm LVOT Peak Kody 1.0 [ 70.0 - 110.0 ] cm/sec LVPWd 2D 0.9 [ 0.6 - 1.0 ] cm LVOT Peak PG 4.0 [ 2.0 - 6.0 ] mmHg IVSd 2D 0.9 [ 0.6 - 1.0 ] cm MV E Peak Kody 0.6 [ 60.0 - 130.0 ] cm/sec IVS/LVPW 2D 1.0 ratio MV A Peak Kody 0.6 [ 100.0 - 120.0 ] cm/sec AoR Diam 2D 2.3 [ 2.6 - 3.4 ] cm MV E/A 1.0 [ 0.8 - 1.5 ] ratio LA/Ao 2D 1 ratio MV Decel Time 194 [ 104 - 258 ] msec EF 2D 65.6 [ 52.0 - 72.0 ] percent Lat E` Kody 0.2 [ 10.0 - 15.0 ] cm/sec MV E/A 1.0 [ 0.8 - 1.5 ] ratio RA Pressure 3.0 mmHg Findings: Left Ventricle: Normal left ventricular systolic function. Lower limits of normal systolic function. Normal left ventricular cavity size. Normal left ventricular wall thickness. Ejection fraction is visually estimated at 50 %. Tissue Doppler/Mitral Doppler indices are within normal limits. Right Ventricle: Normal right ventricular size. Normal right ventricular systolic function. Left Atrium: The left atrium is normal in size. Right Atrium: The right atrium is normal in size. Mitral Valve: Normal appearance and function of the mitral valve with trace physiologic regurgitation. Aortic Valve: No hemodynamically significant aortic stenosis by doppler. Aortic cusps appear mildly calcified. Tricuspid Valve: Normal appearance of the tricuspid valve. Unable to obtain RVSP due to minimal presence of tricuspid regurgitation. Pericardium: Normal pericardium with no significant pericardial effusion. Aorta: Normal aortic root. IVC: Normal size and normal respiratory collapse consistent with normal right atrial pressure. Conclusions: Normal left ventricular systolic function. Lower limits of normal systolic function. Normal left ventricular cavity size. Normal left ventricular wall thickness. Ejection fraction is visually estimated at 50 %. Tissue Doppler/Mitral Doppler indices are within normal limits. Normal appearance and function of the mitral valve with trace physiologic regurgitation. No hemodynamically significant aortic stenosis by doppler. Aortic cusps appear mildly calcified. Normal appearance of the tricuspid valve. Unable to obtain RVSP due to minimal presence of tricuspid regurgitation. Electronically Signed By: Elizabeth Jason 2018-11-29 12:14:31 PDT
--- NOTE | 2018-11-29 12:33 | PDOCDIS ---
Discharge Instructions CONDITION [id number] Patient Condition: [id number] Stable HOME CARE INSTRUCTIONS: [id number] Diet Instructions: [id number] Regular ACTIVITY: [id number] Activity Restrictions: [id number] Slowly Increase Activity Rest between Activity Avoid heavy lifting FOLLOW UP/APPOINTMENTS Follow-up Plan Keep yourself well-hydrated, see your doctor in the clinic in the next 1-2 weeks. DEEPTI WILKINSON Nov 29, 2018 12:33
--- NOTE | 2018-11-29 12:42 | DS ---
Date/Time of Note Date/Time of Note DATE: 11/29/18 TIME: 12:38 Discharge Summary Admission/Discharge Info Admit Date/Time Nov 27, 2018 at 07:41 Discharge Date/Time Discharge Diagnosis 1. Alcohol intoxication-patient found with elevated blood alcohol level - impr oving 2. Substance abuse.-Urine drug screen positive for opioids and amphetamines. -Counseled on cessation 3. Acute kidney injury - resolved 4. Rhabdomyolysis-patient found with elevated CK levels 2400 range-trending down now, no muscle pains presently 5. Transaminitis with hyperbilirubinemia-Most probably secondary to underlying alcoholism-Hepatitis panel negative, trending down now 6. Leukocytosis -resolving 7. Elevated troponins: No EKG changes, no chest pain. Trended down to normal range now per evaluated by cardiology team, thought to be secondary to rhabdomyolysis. Patient Condition: Stable Hx of Present Illness 28 year old male who denied any past medical history, other than history of alcohol abuse. The patient was recently at a alcohol rehab program and was discharged from there. The patient went on a drinking spree with his friends. The patient was brought to emergency room by his friends because of altered level of consciousness. ER physician documented recent heroin abuse. However, the patient denied using any recreational drugs. Nevertheless, the patient's urine drug screen was positive for opioids and amphetamines. The patient was complaining of anxiety. The patient denied any pain. He denied any nausea, vomiting, constipation, diarrhea, or black stools. The patient does not remember how he got to the emergency room. In the emergency room, the patient was somnolent although arousable. The patient reported a mild headache with nausea and some general abdominal discomfort in the emergency room. The patient's workup showed that he has underlying transaminitis without hyperbilirubinemia. He was also noticed to be in acute renal failure with a BUN and creatinine of 23 and 1.74 respectively. The patient was treated with IV fluids in the emergency room. The patient's alcohol level was 111. Hospital Course Patient was admitted and monitored for signs of withdrawal which she displayed. He was placed on banana bag, IV fluids, Librium as well. He was counseled on cessation of drug use given that he was positive for amphetamine and opiate use outpatient manuel along with alcohol. He was monitored for signs of withdrawal. Over the course of his hospital stay he was also given IV fluids given his rhabdomyolysis. His CK levels trended down close to normal range. He had no signs of any muscle pain, and his renal insufficiency symptoms resolved. He was evaluated by cardiology team because his troponins were slightly elevated, this was thought to be secondary to rhabdomyolysis and not any acute cardiac event since he had no chest pain. Echocardiogram was ordered and results are still pending by the time of discharge. Patient was able to ambulate, tolerated p.o. diet. He will be discharged home later today in improved condition with Librium taper and multivitamin. See below for full list of discharge medications. Home Meds No Active Prescriptions or Reported Meds Follow-up Plan Keep yourself well-hydrated, see your doctor in the clinic in the next 1-2 weeks. Primary Care Provider Care Physician No Primary Time spent on discharge: > 30 minutes Pending Labs Laboratory Tests Test 11/28/18 13:00 11/28/18 16:51 11/28/18 23:10 11/29/18 05:34 Troponin I 0.120 0.118 0.112 ng/ml (0.000-0. ng/ml (0.000-0 ng/ml (0.000-0 120) .120) .120) White Blood 9.9 Count 10^3/ul (4.8-1 0.8) Red Blood 4.07 Count 10^6/ul (4.70- 6.10) Hemoglobin 12.5 g/dl (14.0-18. 0) Hematocrit 36.5 % (42.0-52.0) Mean 89.7 Corpuscular fl (82.0-101.0 Volume ) Mean 30.7 Corpuscular pg (29.0-33.0) Hemoglobin Mean 34.2 Corpuscular g/dl (32.0-37. Hemoglobin Conc 0) ent Red Cell 11.9 Distribution % (11.5-14.5) Width Platelet Count 205 10^3/UL (140-4 15) Mean Platelet 10.5 Volume fl (7.4-10.4) Immature 0.400 Granulocytes % % (0.001-0.429 ) Neutrophils % 68.9 % (39.0-77.0) Lymphocytes % 19.4 % (15.0-51.0) Monocytes % 7.5 % (0.0-11.0) Eosinophils % 3.1 % (0.0-7.0) Basophils % 0.7 % (0.0-2.0) Nucleated Red 0.0 Blood Cells % /100WBC (0.0-0 .0) Immature 0.040 Granulocytes # 10^3/ul (0.0-0 .031) Neutrophils # 6.8 10^3/ul (1.6-7 .5) Lymphocytes # 1.9 10^3/ul (0.8-2 .9) Monocytes # 0.7 10^3/ul (0.3-0 .9) Eosinophils # 0.3 10^3/ul (0.0-0 .5) Basophils # 0.1 10^3/ul (0.0-0 .1) Nucleated Red 0.0 Blood Cells # 10^3/ul (0.0-0 .0) Sodium Level 140 mmol/L (135-14 4) Potassium 4.0 Level mmol/L (3.5-5. 1) Chloride Level 109 mmol/L (97-110 ) Carbon Dioxide 26 Level mmol/L (21-31) Anion Gap 5 (5-13) Blood Urea 6 mg/dl (7-20) Nitrogen Creatinine 0.60 mg/dl (0.61-1. 24) Est Glomerular > 60 Filtrat mL/min (>60) Rate mL/min Glucose Level 96 mg/dl (70-220) Calcium Level 8.9 mg/dl (8.4-10. 2) Phosphorus 2.4 Level mg/dl (2.5-4.9 ) Magnesium 1.9 Level mg/dl (1.7-2.5 ) Creatine 1241 Kinase IU/L (23-200) DEEPTI WILKINSON Nov 29, 2018 12:42
== END 2018-11-29 12:30 | disposition home or self-care (01) | DRG 897 ==
LOC: E/R 04:39 → EDBEDREQ 07:41 → PP2 07:41
PROVIDERS: ADMIT Internal Medicine; ATTEND Hospitalist
DX: F10.229 Alcohol dependence with intoxication, unspecified (principal); M62.82 Rhabdomyolysis; N17.9 Acute kidney failure, unspecified; F15.10 Other stimulant abuse, uncomplicated; F11.10 Opioid abuse, uncomplicated; Y90.5 Blood alcohol level of 100-119 mg/100 ml; F17.200 Nicotine dependence, unspecified, uncomplicated; E80.6 Other disorders of bilirubin metabolism; R74.0 Nonspecific elevation of levels of transaminase and lactic acid dehydrogenase [LDH]; D72.829 Elevated white blood cell count, unspecified; R74.8 Abnormal levels of other serum enzymes
CPT/HCPCS: 36415; 76775; 80048; 80053; 80307; 81001; 82550; 82553; 83735; 84100; 84484; 85025; 85610; 85730; 86703; 86704; 86709; 86803; 87081; 87340; 93005; 93306; J2060; J3411; J7030; J7050

== ENCOUNTER 2018-11-30 07:01 | Emergency (ER) | payer OTHER ==
[~2018-11-30] VITALS: Ht 172.7 cm; Wt 62.5 kg
[2018-11-30 07:03] VITALS: BP 120/81; PULSE 82; RESP 19; Ht 172.7 cm; Wt 62.5 kg
--- NOTE | 2018-11-30 07:39 | ERD ---
ER Documentation Chief Complaint Chief Complaint ALCOHOL ABUSE; ETOH HPI 28-year-old male presents to the emergency department essentially for social worker assistant resources. Patient was just recently released from the hospital where he was admitted for complications of polysubstance abuse. Upon discharge, he states he has been having a difficult time negotiating the community. He is homeless with no place to live. He continues to go back to use alcohol and wishes to get into detox. Currently reports no fevers, vomiting, significant tremor. He has had no seizures. He has no other medical complaints including no chest pain, shortness of breath. ROS All systems reviewed and are negative except as per history of present illness. Medications Home Meds No Active Prescriptions or Reported Meds Allergies Allergies: Coded Allergies: No Known Drug Allergies (Verified Allergy, Unknown, 11/27/18) PMhx/Soc History of Surgery: No Anesthesia Reaction: No Hx Neurological Disorder: No Hx Respiratory Disorders: No Hx Cardiac Disorders: No Hx Psychiatric Problems: Yes (Anxiety) Hx Miscellaneous Medical Probl: No Hx Alcohol Use: Yes Hx Substance Use: Yes Hx Tobacco Use: Yes Smoking Status: Current every day smoker Physical Exam Vitals Vital Signs Date Temp Pulse Resp B/P (MAP) Pulse Ox O2 O2 Flow FiO2 Time Delivery Rate 11/30/18 97.1 82 19 120/81 99 07:03 (94) Physical Exam GENERAL: The patient is well developed and appropriate for usual state of health in no apparent distress HEENT: Pupils equal, round, and reactive to light. EOMI. There is no scleral icterus. NECK: C-spine is soft and supple, there is no meningismus. There is no cervical lymphadenopathy. LUNGS: Clear to auscultation bilaterally. There are no rales, wheezes or rhonchi. HEART: Regular rate and rhythm, no murmurs, clicks, rubs or gallops. ABDOMEN: Soft, non-tender, non-distended. There are bowel sounds in all four quadrants. No rebound or guarding. EXTREMITIES: There is no peripheral cyanosis or edema. No focal swelling or erythema. NEURO: The patient moves all four extremities with 5/5 strength. Cranial nerves II - XII are intact. Normal gait. Alert and oriented. No resting tremor SKIN: There is no apparent rash or petechiae. HEME/LYMPHATIC: There is no evidence of excessive bruising or lymphedema. PSYCHIATRIC: The patient does not appear anxious or depressed. Procedures/MDM Patient was taken to a room, seen and evaluated. Comfort measures were initiated. Diagnostic tests were ordered and reviewed. 3 LEAD RHYTHM STRIP: Normal sinus rhythm without ectopy REEVALUATION: Patient remains without significant withdrawal syndrome symptoms. MEDICAL DECISION MAKIN-year-old male presents to the emergency department after leaving the hospital for polysubstance abuse issues with essentially no ongoing social worker assistant needs. As he is without a home at this time, he will be provided with social worker assistant resources as per hospital policy. From a medical standpoint he she has no indications of significant high risk withdrawal symptoms or other high-risk medical issues and seems clear from emergent medical condition. Departure Diagnosis: Primary Impression: Polysubstance abuse Condition: Stable PAO KRISHNAMURTHY Nov 30, 2018 07:39
== END 2018-11-30 08:06 | disposition home or self-care (01) ==
LOC: E/R 07:01
DX: F19.20 Other psychoactive substance dependence, uncomplicated (principal); F17.210 Nicotine dependence, cigarettes, uncomplicated
CPT/HCPCS: 99282